=== PATIENT | male | born 1985 | race Caucasian/White ===

== ENCOUNTER 2022-01-26 15:31 | Emergency (ER) | payer SELFPAY ==
[2022-01-26 16:02] VITALS: BP 131/77; PULSE 72; RESP 18; TEMP 37.2; O2SAT 100
--- NOTE | 2022-01-26 18:10 | ED.GENADUL_ITS ---
Discharge Plan Disposition Patient Disposition: HOME Condition: Improving Discharge Details Chief Complaint: GenMedical Clinical Impression: Fatigue Primary Care Provider: None,None ED Provider: Erik Lindsay Discharge Instructions Instructions: Fatigue (ED) Additional Instructions: Please follow-up with primary care physician team. Please return the emergency department if you have any worsening symptoms. Medical Decision Making 36-year-old male presents with resolving fatigue that began at the end of November. Endorses multiple symptoms including warm sensation in his forehead, twitching o f his left, incomplete yawning, has been staying with some friends that he feels nervous about the symptoms, believes he may have had a TIA. Patient is alert and oriented hemodynamically stable afebrile nontoxic, moving all extremities cranial nerves II through XII intact, 5 out of 5 strength upper and lower extremities, ambulatory without ataxia, TMs clear, nonmeningeal. Counseled patient at length regarding the unlikelihood of actual TIA or stroke. I believe he may have been suffering from exhaustion and/or heat exposure during this initial event given multiple physical jobs during the summertime as well as improvement now that he has been off of work. Offered patient labs and imaging if he felt strongly about it however recommended that we get him connected with primary care for more longitudinal evaluation. Patient comfortable going home follow-up with primary care returning for any worsening symptoms. HPI General Date/Time Provider Initiated Documentation: 01/26/22 16:07 . 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 Endorses episode at the end of November where he felt really exhausted fell asleep and had a dream that both of his eyes were sewn shut when he woke up he did not feel right he felt dull had a warm sensation in his scalp and very fatigued. Denies chest pain shortness of breath nausea vomiting diarrhea or constipation. No history of cardiac disease or neurologic disease. Was doing a Google search and believes he may have had a TIA. His symptoms lasted for several days to a week he is feeling better now that he is taking time off of work. No speech deficit no facial weakness no arm or leg weakness or sensory deficits. He does feel that intermittently his left eye will twitch and that he cannot get out a full yawn Related Data Allergies Allergy/AdvReac Type Severity Reaction Status Date / Time No Known Allergies Allergy Unverified 01/26/22 16:06 General Stated Complaint: GenMedical LAUREN: 4 Review of Systems Narrative: Review of Systems Constitutional: Fatigue Eyes: negative ENT: negative Cardiovascular: negative Respiratory: negative Gastrointestinal: negative : negative Musculoskeletal: negative Skin: negative Neurologic: negative Psych: negative PFSH All Active Problems (Updated 01/26/22 @ 18:27 by Erik Lindsay MD) Fatigue (Acute) Social History (System 12/08/21 @ 08:34 by Maggi Rosas) Smoking/Tobacco Use Status: Never Smoking risk assessment performed?: Yes Substance use type: does not use Exam Narrative Exam Narrative: Physical Examination General: alert, awake, cooperative, resting comfortably, no acute distress HEENT: normocephalic, atraumatic; PERRL, EOM intact, conjunctiva normal; no nasal discharge; moist mucous membranes, oral and pharyngeal mucosa normal, tolerating secretions; TMs clear bilaterally Neck: supple, trachea midline; full ROM Chest: normal to inspection Respiratory: normal respiratory effort, speaking in full sentences, clear to auscultation, no wheezing, rales or rhonchi Cardiac: regular rate, regular rhythm, S1S2 intact, no murmurs rubs or gallops GI: abdomen soft, non-tender, non-distended; no palpable mass or hepatosplenomegaly Skin: no lesions, rashes or trauma appreciated Neuro: AAOx3, normal speech, moving all extremities; cranial nerves II through XII intact, no ataxia Extremities: Warm well perfused moving all extremities Psych: Appropriate mood and affect Course Vital Signs Vital signs: Vital Signs Temperature 37.2 C 01/26/22 16:02 Pulse 72 01/26/22 16:02 Respiratory Rate 18 01/26/22 16:02 Blood Pressure 131/77 01/26/22 16:02 Pulse Oximetry 100 01/26/22 16:02 Temperature 37.2 C 01/26/22 16:02 Temperature Source Temporal Artery Scan 01/26/22 16:02 Pulse 72 01/26/22 16:02 Respiratory Rate 18 01/26/22 16:02 Blood Pressure 131/77 01/26/22 16:02 Blood Pressure Position Sitting 01/26/22 16:02 Pulse Oximetry 100 01/26/22 16:02 Oxygen Delivery Method Room Air 01/26/22 16:02 Oxygen Flow Rate 0 01/26/22 16:02 Pain Level 0 01/26/22 16:02
--- NOTE | 2022-01-26 18:28 | NUR.NOTE ---
Nursing Note: Referral given to Care Management for needs PCP; establish care, fatigue; in 1 -2 weeks.
== END 2022-01-26 18:39 | disposition home or self-care (01) ==
PROVIDERS: Emergency Provider Emergency Medicine
DX: R53.83 Other fatigue (principal)
CPT/HCPCS: 99281

== ENCOUNTER 2022-08-12 19:44 | Outpatient (REF) | payer MEDICAID, SELFPAY ==
[2022-08-12 20:38] LABS: Abs Immature Grans 0.01 10^3/uL (0.0-0.06); Absolute Basophil Count 0.07 10^3/uL (0.0-0.2); Absolute Eosinophil Count 0.28 10^3/uL (0.0-0.7); Absolute Lymphocyte Count 2.04 10^3/uL (1.2-3.4); Absolute Monocyte Count 0.51 10^3/uL (0.1-0.8); Absolute Neutrophil Count 2.89 10^3/uL (1.2-6.7); Basophils % 1.2; Eosinophils % 4.8; HCT 45.8 % (40.0-50.0); HGB 15.3 g/dL (13.5-17.5); Immature Grans % 0.2; Lymphocytes % 35.2; MCH 29.3 pg (27.0-33.0); MCHC 33.4 % (32.0-36.0); MCV 88 fL (80-95); MPV 9.1 fL (8.0-11.0); Monocytes % 8.8; Neutrophils % 49.8; Platelet Count 359 10^3/uL (130-400); RBC 5.22 10^6/uL (4.36-5.78); RDW 12.3 % (11.8-14.1); RDW-SD 39.9 fL
[2022-08-12 20:59] LABS: ALT 38 U/L (16-63); AST 19 U/L (15-37); Albumin 4.3 g/dL (3.4-5.0); Alkaline Phosphatase 88 U/L (46-116); Anion Gap 5.3 mmol/L (3-11); BUN 16 mg/dL (7-18); Bilirubin, Total 0.6 mg/dL (0.2-1.0); CO2 31.7 mmol/L (21.0-32.0); CREATININE 0.8 mg/dL (0.70-1.30); Calcium 9.4 mg/dL (8.5-10.1); Chloride 104 mmol/L (98-107); Glucose 92 mg/dL (74-106); Potassium 4.6 mmol/L (3.5-5.1); Sodium 141 mmol/L (136-145); Total Protein 7.1 g/dL (6.4-8.2)
[2022-08-12 21:01] LABS: TSH (W/Ref FT4) < 0.01 uIU/mL (0.36-3.74)
[2022-08-12 21:03] LABS: Hemoglobin A1C 5.3 % (<5.7)
[2022-08-12 22:13] LABS: FREE T4 1.04 ng/dL (0.76-1.46)
== END 2022-08-12 19:45 | disposition home or self-care (01) ==
LOC: LBN 19:44
PROVIDERS: PCP Family Medicine; Visit Provider Physician Assistant Medical
DX: R53.83 Other fatigue (principal)
CPT/HCPCS: 80053; 83036; 84439; 84443; 85025

== ENCOUNTER 2022-09-05 08:32 | Emergency (ER) | payer MEDICAID, SELFPAY ==
[2022-09-05 08:37] VITALS: BP 137/62; PULSE 96; RESP 16; TEMP 37; O2SAT 99
[2022-09-05 08:50] VITALS: RESP 16
[2022-09-05 09:05] LABS: Bilirubin Negative (Negative); Blood Negative (Negative); Clarity Clear (Clear); Glucose Negative (Negative); Ketones Negative (Negative); Leukocyte Esterase Negative (Negative); Nitrite Negative (Negative); Specific Gravity <= 1.005 (1.005-1.025); Urobilinogen 0.2 mg/dL (Up to 0.2); pH 6.5 (5-8)
--- NOTE | 2022-09-05 09:15 | RT.EKG_ITS ---
APPROVED REPORT Exam: Resting ECG Reason for Exam: fatigue Patient Location: E HR:66 bpm ECG Measurements Heart Rate 66 AXIS MA 197 P 69 QRSd 81 QRS 51 QT 389 T 58 QTc 409 Conclusion Sinus rhythm...normal P axis, V-rate 60- 99 Consider left ventricular hypertrophy...(S V1+R V5/V6) >3.50mV
[2022-09-05 09:47] LABS: Abs Immature Grans 0.02 10^3/uL (0.0-0.06); Absolute Basophil Count 0.04 10^3/uL (0.0-0.2); Absolute Eosinophil Count 0.17 10^3/uL (0.0-0.7); Absolute Lymphocyte Count 1.37 10^3/uL (1.2-3.4); Absolute Monocyte Count 0.41 10^3/uL (0.1-0.8); Absolute Neutrophil Count 4.67 10^3/uL (1.2-6.7); Basophils % 0.6; Carboxyhemoglobin 1.4 %; Eosinophils % 2.5; HCT 44.1 % (40.0-50.0); HGB 15.1 g/dL (13.5-17.5); Immature Grans % 0.3; Lymphocytes % 20.5; MCHC 34.2 % (32.0-36.0); MCV 85 fL (80-95); MPV 8.7 fL (8.0-11.0); Monocytes % 6.1; Platelet Count 354 10^3/uL (130-400); RDW 12.8 % (11.8-14.1); RDW-SD 39.7 fL; WBC 6.68 10^3/uL (4.4-10.8)
[2022-09-05 10:16] LABS: ALT 74 U/L (16-63); AST 37 U/L (15-37); Albumin 3.9 g/dL (3.4-5.0); Alkaline Phosphatase 94 U/L (46-116); Anion Gap 7.9 mmol/L (3-11); BUN 14 mg/dL (7-18); Bilirubin, Total 0.5 mg/dL (0.2-1.0); CO2 28.1 mmol/L (21.0-32.0); CREATININE 0.7 mg/dL (0.70-1.30); Calcium 8.9 mg/dL (8.5-10.1); Chloride 106 mmol/L (98-107); Estimated GFR 120.95 (mL/min/1.73m2); Glucose 97 mg/dL (74-106); Potassium 4.2 mmol/L (3.5-5.1); Sodium 142 mmol/L (136-145); Total Protein 7.2 g/dL (6.4-8.2); Troponin I < 50 ng/L (<or=60)
[2022-09-05 10:17] LABS: TSH (W/Ref FT4) < 0.01 uIU/mL (0.36-3.74)
--- NOTE | 2022-09-05 10:26 | ED.GENADUL_ITS ---
Discharge Plan Disposition Patient Disposition: Home Discharge Details Clinical Impression: Disturbance of sleep, Fatigue, Generally unwell, EKG abnormality Primary Care Provider: Chad Marley ED Provider: Melecio Dudley Home Meds and New Rx's Prescriptions: No Action No Known Home Meds Discharge Instructions Instructions: Fatigue (ED) Additional Instructions: No emergent condition was identified today. Please follow-up with your primary care physician. Additional outpatient diagnostic testing should be considered including potentially a cardiac echocardiogram and further thyroid testing. Please contact your primary care physician to arrange follow-up. Return to the ER immediately for any worsening or new concerning symptoms. Medical Decision Making 37-year-old male who notes generally not feeling well for the past few months. Patient has had difficulty sleeping with challenging living environment. Patient is afebrile and hemodynamically stable. Considered carbon monoxide poisoning. Carboxyhemoglobin level is normal. Considered electrolyte abnormality. Labs reviewed and no significant electr olyte now present. Considered thyroid dysfunction. TSH is low but free T4 normal. Considered anemia. CBC reviewed and normal hemoglobin. I considered arrhythmia. EKG was reviewed and interpreted by me: Please see report, sinus rhythm 66 bpm, voltage criteria met for LVH. Unclear etiology for symptoms at this time. No emergent condition identified. Suspect sleep deficit contributing. Plan for follow-up with PCP. SBIRT screener spoke with the patient regarding nicotine use and patient does seem motivated to quit. Brief intervention was performed by screener. Disposition decision was made weighing the risks and benefits of hospitalization versus outpatient treatment, the risk for further decompensation, and the patient's wishes. The patient was stable and requested discharge. Prior to discharge, my usual and customary return precautions were reviewed with the patient - this included follow-up instructions and reason to return to the emergency department if condition worsens, does not improve as expected, or other new concerns arise. All results reviewed with the patient. I did suggest the patient that he changed living environment to hopefully improve sleep. Lab Data Lab results reviewed: Yes I reviewed the patient's lab results. Labs: Laboratory Tests Range/Units 09/05/22 09/05/22 09/05/22 08:55 09:42 09:42 WBC (4.4-10.8) 10^3/uL RBC (4.36-5.78) 10^6/uL Hgb (13.5-17.5) g/dL Hct (40.0-50.0) % MCV (80-95) fL MCH (27.0-33.0) pg MCHC (32.0-36.0) % RDW (11.8-14.1) % Plt Count (130-400) 10^3/uL MPV (8.0-11.0) fL Immature Gran % Neutrophils % Lymphocytes % Monocytes % Eosinophils % Basophils % Nucleated RBC % (0.0-0.3) % Absolute Neutrophils (1.2-6.7) 10^3/uL Absolute Lymphocytes (1.2-3.4) 10^3/uL Absolute Monocytes (0.1-0.8) 10^3/uL Absolute Eosinophils (0.0-0.7) 10^3/uL Absolute Basophils (0.0-0.2) 10^3/uL Carboxyhemoglobin % % 1.4 Sodium (136-145) mmol/L 142 Potassium (3.5-5.1) mmol/L 4.2 Chloride (98-107) mmol/L 106 Carbon Dioxide (21.0-32.0) mmol/L 28.1 Anion Gap (3-11) mmol/L 7.9 BUN (7-18) mg/dL 14 Creatinine (0.70-1.30) mg/dL 0.7 Est GFR (CKD-EPI 2020) (mL/min/1.73m2) 120.95 Glucose (74-106) mg/dL 97 Calcium (8.5-10.1) mg/dL 8.9 Magnesium (1.8-2.4) mg/dL 2.0 Total Bilirubin (0.2-1.0) mg/dL 0.5 AST (15-37) U/L 37 ALT (16-63) U/L 74 H Alkaline Phosphatase (46-116) U/L 94 Troponin I (<or=60) ng/L < 50 Total Protein (6.4-8.2) g/dL 7.2 Albumin (3.4-5.0) g/dL 3.9 TSH (0.36-3.74) uIU/mL < 0.01 L Urine Color (Yellow) Yellow Urine Clarity (Clear) Clear Urine pH (5-8) 6.5 Ur Specific [place] (1.005-1.025) <= 1.005 Urine Protein (Negative) mg/dL Negative Urine Ketones (Negative) mg/dL Negative Urine Blood (Negative) Negative Urine Nitrite (Negative) Negative Urine Bilirubin (Negative) Negative Urine Urobilinogen (Up to 0.2) mg/dL 0.2 Ur Leukocyte Esterase (Negative) Negative Urine Glucose (Negative) mg/dL Negative Range/Units 09/05/22 09:42 WBC (4.4-10.8) 10^3/uL 6.68 RBC (4.36-5.78) 10^6/uL 5.20 Hgb (13.5-17.5) g/dL 15.1 Hct (40.0-50.0) % 44.1 MCV (80-95) fL 85 MCH (27.0-33.0) pg 29.0 MCHC (32.0-36.0) % 34.2 RDW (11.8-14.1) % 12.8 Plt Count (130-400) 10^3/uL 354 MPV (8.0-11.0) fL 8.7 Immature Gran % 0.3 Neutrophils % 70.0 Lymphocytes % 20.5 Monocytes % 6.1 Eosinophils % 2.5 Basophils % 0.6 Nucleated RBC % (0.0-0.3) % 0.0 Absolute Neutrophils (1.2-6.7) 10^3/uL 4.67 Absolute Lymphocytes (1.2-3.4) 10^3/uL 1.37 Absolute Monocytes (0.1-0.8) 10^3/uL 0.41 Absolute Eosinophils (0.0-0.7) 10^3/uL 0.17 Absolute Basophils (0.0-0.2) 10^3/uL 0.04 Carboxyhemoglobin % % Sodium (136-145) mmol/L Potassium (3.5-5.1) mmol/L Chloride (98-107) mmol/L Carbon Dioxide (21.0-32.0) mmol/L Anion Gap (3-11) mmol/L BUN (7-18) mg/dL Creatinine (0.70-1.30) mg/dL Est GFR (CKD-EPI 2020) (mL/min/1.73m2) Glucose (74-106) mg/dL Calcium (8.5-10.1) mg/dL Magnesium (1.8-2.4) mg/dL Total Bilirubin (0.2-1.0) mg/dL AST (15-37) U/L ALT (16-63) U/L Alkaline Phosphatase (46-116) U/L Troponin I (<or=60) ng/L Total Protein (6.4-8.2) g/dL Albumin (3.4-5.0) g/dL TSH (0.36-3.74) uIU/mL Urine Color (Yellow) Urine Clarity (Clear) Urine pH (5-8) Ur Specific [place] (1.005-1.025) Urine Protein (Negative) mg/dL Urine Ketones (Negative) mg/dL Urine Blood (Negative) Urine Nitrite (Negative) Urine Bilirubin (Negative) Urine Urobilinogen (Up to 0.2) mg/dL Ur Leukocyte Esterase (Negative) Urine Glucose (Negative) mg/dL HPI General Mode of arrival: ambulatory . Date/Time Provider Initiated Documentation: 09/05/22 08:51 . Limitations to Documentation: no limitations . Information obtained by: patient . HPI Narrative: 37-year-old male here with chief complaint of generally not feeling well. Patient notes he has not been feeling well for months. He notes that he is in a difficult living situation currently staying with a friend. He notes he is having trouble sleeping at night. He is concerned that the multiple animals may contributing to the strange odor in the trailer where he is staying and that this may be contributing to his symptoms. He notes he has nausea at times, fatigue, intermittent headaches. Patient has no pain at this time. He does feel fatigued. Patient was seen at [facility] a few weeks ago and had blood work that was nondiagnostic and it was recommended that he come to the hospital for further assessment and he declined at that time. Patient denies tick bite. No fevers or cough. No chest pain or shortness of breath. Related Data Home Medications Medication Instructions Recorded Confirmed Unknown [No Known Home Meds] 06/03/22 09/05/22 Allergies Allergy/AdvReac Type Severity Reaction Status Date / Time No Known Allergies Allergy Unverified 09/05/22 08:48 General Stated Complaint: GenMedical LAUREN: 3 Review of Systems All systems reviewed & are unremarkable except as noted in HPI and below Constitutional Constitutional: Denies fever(s) Cardiovascular Cardiovascular: Denies chest pain and Denies dyspnea Respiratory Respiratory: Denies dyspnea PFSH All Active Problems (Updated 09/05/22 @ 10:38 by Melecio Dudley MD) Disturbance of sleep (Acute) Fatigue (Acute) Generally unwell (Acute) EKG abnormality (Acute) Changes in vision (Acute 05/23/22) Insomnia (Acute) Smokeless tobacco use (Acute) Migraine aura, persistent (Acute) Social History Smoking/Tobacco Use Status: Current every day Tobacco Type: smokeless tobacco Tobacco: How many years used: 10 Smoking risk assessment performed?: Yes Alcohol Intake: never Drug use: Current Sobriety Substance use type: marijuana Adopted: No Caregiver/Support person: No Foster care: No Household members: family Housing: house Number of Children: 0 number of grandchildren: 0 Communication Needs: None Education Level: high school Do you need help understanding health information?: Rarely Pets and animals: No Sexually active: Yes Do you think of yourself as: straight/heterosexual Current gender identity: male What is your relationship status?: refused to answer How often do you talk on the phone with friends or family?: twice per week How often do you get together with friends or relatives?: three or more times per week Do you belong to any clubs or organized social groups?: no Panel score (0-1 are the most socially isolated patients): 1 What type of physical activity do you participate in: regular exercise Duration: 60-90 minutes/day Frequency: 3-4 times per week Danya/Jain: Tenriism Special dayna needs: No Seatbelt use: sometimes Helmet use: Yes Helmet use: always Drive intox or ride w/intox route driver salesperson: No Exam Const General: cooperative and no acute distress HENMT Mouth: moist mucous membranes Eyes Sclera: normal sclerae Neck Neck: trachea midline and supple Resp Auscultation: clear to auscultation bilaterally, no rales, no rhonchi and no wheezes Cardio Rate: regular rate and not tachycardic Rhythm: regular rhythm Heart Sounds: no gallops, no murmurs and no rubs GI Palpation: soft, not firm, no guarding, no masses, not rigid and nontender Skin General skin exam: no rashes or lesions noted Neuro General: patient alert, patient awake, patient oriented x3 and tone normal Cognition: normal cognition Speech: speech normal Gait: normal gait Motor: muscle tone normal throughout Extrem General: no edema Psych Appearance: grossly normal Mental Status: mental status grossly normal Speech and Movement: speech and movement normal Course Vital Signs Vital signs: Vital Signs Temperature 37 C 09/05/22 08:37 Pulse 96 H 09/05/22 08:37 Respiratory Rate 16 09/05/22 08:37 Blood Pressure 137/62 09/05/22 08:37 Pulse Oximetry 99 09/05/22 08:37 Temperature 37 C 09/05/22 08:37 Temperature Source Oral 09/05/22 08:37 Pulse 96 H 09/05/22 08:37 Respiratory Rate 16 09/05/22 08:50 Respiratory Effort Normal 09/05/22 08:50 Respiratory Depth Normal 09/05/22 08:50 Respiratory Pattern Normal 09/05/22 08:50 Blood Pressure 137/62 09/05/22 08:37 Blood Pressure Position Sitting 09/05/22 08:37 Pulse Oximetry 99 09/05/22 08:37 Oxygen Delivery Method Room Air 09/05/22 08:37 Oxygen Flow Rate 0 09/05/22 08:37 Pain Level 6 09/05/22 08:37 Comment denies otc relief captain/check airman 09/05/22 08:37 Lab/Test Results Lab/Test Results: Laboratory Tests Range/Units 09/05/22 09/05/22 09/05/22 08:55 09:42 09:42 WBC (4.4-10.8) 10^3/uL RBC (4.36-5.78) 10^6/uL Hgb (13.5-17.5) g/dL Hct (40.0-50.0) % MCV (80-95) fL MCH (27.0-33.0) pg MCHC (32.0-36.0) % RDW (11.8-14.1) % Plt Count (130-400) 10^3/uL MPV (8.0-11.0) fL Immature Gran % Neutrophils % Lymphocytes % Monocytes % Eosinophils % Basophils % Nucleated RBC % (0.0-0.3) % Absolute Neutrophils (1.2-6.7) 10^3/uL Absolute Lymphocytes (1.2-3.4) 10^3/uL Absolute Monocytes (0.1-0.8) 10^3/uL Absolute Eosinophils (0.0-0.7) 10^3/uL Absolute Basophils (0.0-0.2) 10^3/uL Carboxyhemoglobin % % 1.4 Sodium (136-145) mmol/L 142 Potassium (3.5-5.1) mmol/L 4.2 Chloride (98-107) mmol/L 106 Carbon Dioxide (21.0-32.0) mmol/L 28.1 Anion Gap (3-11) mmol/L 7.9 BUN (7-18) mg/dL 14 Creatinine (0.70-1.30) mg/dL 0.7 Est GFR (CKD-EPI 2020) (mL/min/1.73m2) 120.95 Glucose (74-106) mg/dL 97 Calcium (8.5-10.1) mg/dL 8.9 Magnesium (1.8-2.4) mg/dL 2.0 Total Bilirubin (0.2-1.0) mg/dL 0.5 AST (15-37) U/L 37 ALT (16-63) U/L 74 H Alkaline Phosphatase (46-116) U/L 94 Troponin I (<or=60) ng/L < 50 Total Protein (6.4-8.2) g/dL 7.2 Albumin (3.4-5.0) g/dL 3.9 TSH (0.36-3.74) uIU/mL < 0.01 L Urine Color (Yellow) Yellow Urine Clarity (Clear) Clear Urine pH (5-8) 6.5 Ur Specific [place] (1.005-1.025) <= 1.005 Urine Protein (Negative) mg/dL Negative Urine Ketones (Negative) mg/dL Negative Urine Blood (Negative) Negative Urine Nitrite (Negative) Negative Urine Bilirubin (Negative) Negative Urine Urobilinogen (Up to 0.2) mg/dL 0.2 Ur Leukocyte Esterase (Negative) Negative Urine Glucose (Negative) mg/dL Negative Range/Units 09/05/22 09:42 WBC (4.4-10.8) 10^3/uL 6.68 RBC (4.36-5.78) 10^6/uL 5.20 Hgb (13.5-17.5) g/dL 15.1 Hct (40.0-50.0) % 44.1 MCV (80-95) fL 85 MCH (27.0-33.0) pg 29.0 MCHC (32.0-36.0) % 34.2 RDW (11.8-14.1) % 12.8 Plt Count (130-400) 10^3/uL 354 MPV (8.0-11.0) fL 8.7 Immature Gran % 0.3 Neutrophils % 70.0 Lymphocytes % 20.5 Monocytes % 6.1 Eosinophils % 2.5 Basophils % 0.6 Nucleated RBC % (0.0-0.3) % 0.0 Absolute Neutrophils (1.2-6.7) 10^3/uL 4.67 Absolute Lymphocytes (1.2-3.4) 10^3/uL 1.37 Absolute Monocytes (0.1-0.8) 10^3/uL 0.41 Absolute Eosinophils (0.0-0.7) 10^3/uL 0.17 Absolute Basophils (0.0-0.2) 10^3/uL 0.04 Carboxyhemoglobin % % Sodium (136-145) mmol/L Potassium (3.5-5.1) mmol/L Chloride (98-107) mmol/L Carbon Dioxide (21.0-32.0) mmol/L Anion Gap (3-11) mmol/L BUN (7-18) mg/dL Creatinine (0.70-1.30) mg/dL Est GFR (CKD-EPI 2020) (mL/min/1.73m2) Glucose (74-106) mg/dL Calcium (8.5-10.1) mg/dL Magnesium (1.8-2.4) mg/dL Total Bilirubin (0.2-1.0) mg/dL AST (15-37) U/L ALT (16-63) U/L Alkaline Phosphatase (46-116) U/L Troponin I (<or=60) ng/L Total Protein (6.4-8.2) g/dL Albumin (3.4-5.0) g/dL TSH (0.36-3.74) uIU/mL Urine Color (Yellow) Urine Clarity (Clear) Urine pH (5-8) Ur Specific [place] (1.005-1.025) Urine Protein (Negative) mg/dL Urine Ketones (Negative) mg/dL Urine Blood (Negative) Urine Nitrite (Negative) Urine Bilirubin (Negative) Urine Urobilinogen (Up to 0.2) mg/dL Ur Leukocyte Esterase (Negative) Urine Glucose (Negative) mg/dL
[2022-09-05 10:38] VITALS: BP 126/77; PULSE 63; RESP 14; O2SAT 97
--- NOTE | 2022-09-05 11:41 | NUR.NOTE ---
patient called the ER to report that when he arrived home he had some optical symptoms of flashing lights, he states he is discouraged with multiple visits and doesn't feel he is getting any answers. I explained that I could not give him advise over the phone and suggested that he contact his PCP or return to the ER if he felt he needed to be reevaluated. CLB
== END 2022-09-05 10:45 | disposition home or self-care (01) ==
PROVIDERS: Emergency Provider Student in an Organized Health Care Education/Training Program; PCP Family Medicine
DX: R94.31 Abnormal electrocardiogram [ECG] [EKG] (principal); R53.83 Other fatigue; G47.9 Sleep disorder, unspecified; R94.6 Abnormal results of thyroid function studies
CPT/HCPCS: 36415; 36416; 80053; 82375; 82962; 93005; 99283; 81003; 83735; 84439; 84443; 84484; 85025; 93010; 99284

== ENCOUNTER 2022-10-05 13:31 | Emergency (ER) | payer MEDICAID, SELFPAY ==
[2022-10-05 13:45] VITALS: BP 117/98; PULSE 89; RESP 16; O2SAT 99
--- NOTE | 2022-10-05 14:30 | DI.CT_ITS ---
Exam(s) CT HEAD WO EXAM: CT HEAD WO CLINICAL HISTORY: left sided headache. TECHNIQUE: Imaging Protocol: Axial computed tomography images with coronal and sagittal reformatted images were created and reviewed COMPARISON: No exams were available for comparison FINDINGS: Ventricles and Extra axial spaces: Normal in size and morphology for the patient's age. Hemorrhage: None. Cerebral parenchyma: Normal. Midline shift: None. Brainstem/Cerebellum: Normal. Calvarium: Normal. Visualized Paranasal sinuses/Mastoids: There is opacification of ethmoid air cells. There is also mu cosal thickening in the sphenoid sinuses. The remaining visualized paranasal sinuses and mastoid air cells are clear. Soft Tissues: Unremarkable. IMPRESSION: 1. No acute intracranial process. 2. Mild sinusitis. 3. Findings were discussed with the emergency department at 4:28 p.m. on 10/05/2022. RADIATION DOSE DELIVERED: 864.13mGy.cm Total DLP DATA REPOSITORY: All CT scans at this facility are submitted to the National Radiology Data Registry (NRDR) Dose Index Registry (DIR) with the [employer] (A[employer]). RADIATION OPTIMIZATION: All CT scans at this facility use at least one of these dose optimization te chniques: automated exposure control; mA and/or kV adjustment per patient size (includes targeted exa ms where dose is matched to clinical indication); or iterative reconstruction.
[2022-10-05 15:08] LABS: Abs Immature Grans 0.02 10^3/uL (0.0-0.06); Absolute Basophil Count 0.05 10^3/uL (0.0-0.2); Absolute Eosinophil Count 0.17 10^3/uL (0.0-0.7); Absolute Lymphocyte Count 1.81 10^3/uL (1.2-3.4); Absolute Monocyte Count 0.51 10^3/uL (0.1-0.8); Absolute Neutrophil Count 4.67 10^3/uL (1.2-6.7); Basophils % 0.7; Eosinophils % 2.4; HCT 48.3 % (40.0-50.0); HGB 16.3 g/dL (13.5-17.5); Immature Grans % 0.3; MCH 28.7 pg (27.0-33.0); MCHC 33.7 % (32.0-36.0); MCV 85 fL (80-95); MPV 8.5 fL (8.0-11.0); Monocytes % 7.1; Neutrophils % 64.5; Platelet Count 327 10^3/uL (130-400); RBC 5.67 10^6/uL (4.36-5.78); RDW 12.6 % (11.8-14.1); RDW-SD 39.6 fL; WBC 7.23 10^3/uL (4.4-10.8)
--- NOTE | 2022-10-05 15:27 | ED.GENADUL_ITS ---
Discharge Plan Disposition Patient Disposition: Home Condition: Stable Discharge Details Clinical Impression: Hyperthyroidism Primary Care Provider: Chad Marley ED Provider: Luciano Lizama Home Meds and New Rx's Prescriptions: New atenolol 25 mg tablet 25 mg PO DAILY Qty: 14 0RF Patient Comments: not taking Continued melatonin 5 mg Tablet 5 mg PO HS PRN Discharge Instructions Instructions: Hyperthyroidism (ED) Additional Instructions: If you are able please monitor your blood pressure and heart rate while on the new medication. If your heart rate is lower than 60 or your systolic blood pressure is lower than 100 please hold your medication. Also be mindful if this makes you lightheaded upon standing or increases dizziness please hold medication until you see endocrinology. If you develop any new or significant worsening of symptoms please return to the emergency department for reassessment otherwise follow-up with [facility] endocrinology clinic. If you do not hear from them within the next couple days please call their office for scheduling your appointment. Referrals: [facility] [Outside] (Someone from the endocrinology office will reach out to you to further discuss follow-up scheduling) Discharge Data Discharge Date/Time-TO BE ENTERED AT DEPARTURE: 10/05/22 18:40 Medical Decision Making <JUDY Ibanez - Last Filed: 10/07/22 11:27> 37-year-old male who presents with report of fatigue, intermittent headaches, intermittently blurred vision, increased hunger, anxiety, and insomnia has thyroid of less than 0.01, interestingly his free T40.8, will order free T3, concern for subclinical hyperthyroidism We will order CT head as patient has had persistent left-sided headache for intermittently for the past year. Nonfocal neurological exam, specifically no exophthalmos, goiter palpated on exam <Luciano Lizama NP - Last Filed: 10/05/22 22:46> 37-year-old male who presents with report of fatigue, intermittent headaches, intermittently blurred vision, increased hunger, anxiety, and insomnia has thyroid of less than 0.01, interestingly his free T40.8, will order free T3, concern for subclinical hyperthyroidism We will order CT head as patient has had persistent left-sided headache for intermittently for the past year. Nonfocal neurological exam, specifically no exophthalmos, goiter palpated on exam 1600-received signout from Dalila KIM. Please see initial documentation for physical exam, presenting symptoms, and initial plan of care. Patient signed out to me pending head CT scan and suspected [facility] consult for suspected subclinical hyperthyroidism. 1628- Received results from head CT and radiologist interpretation shows mild sinusitis otherwise negative head CT. Free T3 is a send out labs so will contact [facility] for high suspicion of ongoing hyperthyroidism given multiple visits for symptoms consistent with diagnosis. 1800 spoke with [facility] endocrinology and they recommend follow-up with her specialty clinic for highly suspicious clinical presentation of hyperthyroidism. With the recommendation patient was assessed and I did not feel any obvious t hyroid nodule, no goiter, no bruits. Patient also stated no history of viral illness prior to symptoms beginning. Endocrinology recommended atenolol 25 mg daily to see if this helps with patient's symptoms and otherwise they will perform further labs and ultrasound at follow-up preferably next week. Discussed monitoring of vital signs while on beta-kenzie along with return and follow-up precautions. After discussion of diagnosis and plan of care patient has no further needs, questions, or concerns and states clear understanding to return to the emergency department for any worsening symptoms. This documentation was generated using [employer] dictation system, please disregard any oddities of phrase or misspellings. Medical Records Medical records reviewed: Yes I reviewed the patient's medical records. HPI <JUDY Ibanez - Last Filed: 10/07/22 11:27> General Date/Time Provider Initiated Documentation: 10/05/22 13:45 . HPI Narrative: This 37-year-old male presents with symptoms for the past several months. He states he has had insomnia, tremors, headaches, anxiety, and fatigue. He denies any chest pain or shortness of breath. He denies any palpitations. He denies any illicit drug use. He has reported increased hunger. He denies any exacerbating or alleviating factors. He has been seen several times for these complaints. Related Data Home Medications Medication Instructions Recorded Confirmed atenolol 25 mg tablet 25 mg PO DAILY #14 tabs 10/05/22 melatonin 5 mg tablet 5 mg PO HS PRN 10/05/22 10/06/22 Previous Rx's Medication Instructions Recorded atenolol 25 mg tablet 25 mg PO DAILY #14 tabs 10/05/22 Allergies Allergy/AdvReac Type Severity Reaction Status Date / Time No Known Allergies Allergy Unverified 10/06/22 11:01 General Stated Complaint: GenMedical LAUREN: 3 PFSH <JUDY Ibanez - Last Filed: 10/07/22 11:27> All Active Problems (Updated 10/06/22 @ 13:08 by Melecio Dudley MD) Hyperthyroidism (Chronic) Dizziness (Acute) Concern about drug reaction without diagnosis (Acute) Changes in vision (Acute 05/23/22) Insomnia (Acute) Smokeless tobacco use (Acute) Migraine aura, persistent (Acute) Social History Smoking/Tobacco Use Status: Current every day Tobacco Type: smokeless tobacco Tobacco: How many years used: 10 Smoking risk assessment performed?: Yes Alcohol Intake: never Drug use: Current Sobriety Substance use type: does not use Adopted: No Caregiver/Support person: No Foster care: No Household members: family Housing: house Number of Children: 0 number of grandchildren: 0 Communication Needs: None Education Level: high school Do you need help understanding health information?: Rarely Pets and animals: No Sexually active: Yes Do you think of yourself as: straight/heterosexual Current gender identity: male What is your relationship status?: refused to answer How often do you talk on the phone with friends or family?: twice per week How often do you get together with friends or relatives?: three or more times per week Do you belong to any clubs or organized social groups?: no Panel score (0-1 are the most socially isolated patients): 1 What type of physical activity do you participate in: regular exercise Duration: 60-90 minutes/day Frequency: 3-4 times per week Dayna/Confucianism: Confucianist Special dayna needs: No Seatbelt use: sometimes Helmet use: Yes Helmet use: always Drive intox or ride w/intox residential driver: No Exam <JUDY Ibanez - Last Filed: 10/07/22 11:27> Narrative Exam Narrative: Patient appears anxious, alert, oriented, pupils equal round reactive to light and accommodation, proptosis Lungs clear to auscultation, cardiac rate rhythm regular, no abdominal tenderness, no pallor, fully alert and oriented x4, cranial nerves II through XII intact, negative [id number], negative heel ward, ambulatory with steady gait Neck Other: No goiter, mass, thyromegaly Course <JUDY Ibanez - Last Filed: 10/07/22 11:27> Vital Signs Vital signs: Vital Signs Pulse 89 10/05/22 13:45 Respiratory Rate 16 10/05/22 13:45 Blood Pressure 117/98 H 10/05/22 13:45 Pulse Oximetry 99 10/05/22 13:45 Temperature Source Oral 10/05/22 13:45 Pulse 89 10/05/22 13:45 Respiratory Rate 16 10/05/22 13:45 Respiratory Effort Normal 10/05/22 13:48 Blood Pressure 117/98 H 10/05/22 13:45 Blood Pressure Position Sitting 10/05/22 13:45 Pulse Oximetry 99 10/05/22 13:45 Oxygen Delivery Method Room Air 10/05/22 13:45 Oxygen Flow Rate 0 10/05/22 13:45 Pain Level 1 10/05/22 13:45 Lab/Test Results Lab/Test Results: Laboratory Tests Range/Units 10/05/22 14:52 WBC (4.4-10.8) 10^3/uL 7.23 RBC (4.36-5.78) 10^6/uL 5.67 Hgb (13.5-17.5) g/dL 16.3 Hct (40.0-50.0) % 48.3 MCV (80-95) fL 85 MCH (27.0-33.0) pg 28.7 MCHC (32.0-36.0) % 33.7 RDW (11.8-14.1) % 12.6 Plt Count (130-400) 10^3/uL 327 MPV (8.0-11.0) fL 8.5 Immature Gran % 0.3 Neutrophils % 64.5 Lymphocytes % 25.0 Monocytes % 7.1 Eosinophils % 2.4 Basophils % 0.7 Nucleated RBC % (0.0-0.3) % 0.0 Absolute Neutrophils (1.2-6.7) 10^3/uL 4.67 Absolute Lymphocytes (1.2-3.4) 10^3/uL 1.81 Absolute Monocytes (0.1-0.8) 10^3/uL 0.51 Absolute Eosinophils (0.0-0.7) 10^3/uL 0.17 Absolute Basophils (0.0-0.2) 10^3/uL 0.05 Sign Out <JUDY Ibanez - Last Filed: 10/07/22 11:27> Sign Out Data: Sign Out Comment: pending t3, t4, head ct, +/- endo consultation Last updated by Dalila Gallegos PA at 10/05/22 15:48
[2022-10-05 15:31] LABS: ALT 40 U/L (16-63); AST 19 U/L (15-37); Albumin 4.1 g/dL (3.4-5.0); Alkaline Phosphatase 95 U/L (46-116); Anion Gap 8.6 mmol/L (3-11); BUN 14 mg/dL (7-18); Bilirubin, Total 0.5 mg/dL (0.2-1.0); CO2 27.4 mmol/L (21.0-32.0); CREATININE 0.9 mg/dL (0.70-1.30); Calcium 9.2 mg/dL (8.5-10.1); Chloride 105 mmol/L (98-107); Estimated GFR 112.11 (mL/min/1.73m2); Glucose 98 mg/dL (74-106); Potassium 4.2 mmol/L (3.5-5.1); Sodium 141 mmol/L (136-145); Total Protein 7.7 g/dL (6.4-8.2)
[2022-10-05 15:43] LABS: TSH (W/Ref FT4) < 0.01 uIU/mL (0.36-3.74)
[2022-10-05 15:59] LABS: FREE T4 1.08 ng/dL (0.76-1.46)
[2022-10-05 18:33] VITALS: BP 138/74; PULSE 65; RESP 20; TEMP 37.1; O2SAT 97
[2022-10-06 20:16] LABS: T3,Free 7.1 pg/mL (2.8-5.3)
== END 2022-10-05 18:40 | disposition home or self-care (01) ==
PROVIDERS: Physician Assistant; Emergency Provider Nurse Practitioner Family; PCP Family Medicine
DX: E05.90 Thyrotoxicosis, unspecified without thyrotoxic crisis or storm (principal); R51.9 Headache, unspecified
CPT/HCPCS: 80053; 99284; 70450; 84439; 84443; 84481; 85025

== ENCOUNTER 2022-10-06 10:55 | Emergency (ER) | payer MEDICAID, SELFPAY ==
[2022-10-06 10:58] VITALS: PULSE 79; RESP 18; TEMP 36.8; O2SAT 100
[2022-10-06 11:01] VITALS: BP 150/55
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
--- NOTE | 2022-10-06 11:45 | RT.EKG_ITS ---
APPROVED REPORT Exam: Resting ECG Reason for Exam: ? overdose, not feeling well Patient Location: E HR:72 bpm ECG Measurements Heart Rate 72 AXIS [place] 194 P 70 QRSd 92 QRS 47 QT 389 T 56 QTc 427 Conclusion Sinus rhythm...normal P axis, V-rate 60- 99 Probable left atrial enlargement...P >50mS, <-0.10mV V1 Probable left ventricular hypertrophy...multiple LVH criteria
[2022-10-06 12:15] LABS: Lactate 0.8 mmol/L (0.6-1.4)
[2022-10-06 12:19] LABS: Abs Immature Grans 0.02 10^3/uL (0.0-0.06); Absolute Basophil Count 0.03 10^3/uL (0.0-0.2); Absolute Eosinophil Count 0.18 10^3/uL (0.0-0.7); Absolute Lymphocyte Count 1.62 10^3/uL (1.2-3.4); Absolute Monocyte Count 0.47 10^3/uL (0.1-0.8); Absolute Neutrophil Count 3.03 10^3/uL (1.2-6.7); Basophils % 0.6; Eosinophils % 3.4; HCT 47.4 % (40.0-50.0); HGB 16.4 g/dL (13.5-17.5); Immature Grans % 0.4; Lymphocytes % 30.3; MCH 29.3 pg (27.0-33.0); MCHC 34.6 % (32.0-36.0); MCV 85 fL (80-95); MPV 8.8 fL (8.0-11.0); Monocytes % 8.8; Neutrophils % 56.5; Platelet Count 358 10^3/uL (130-400); RBC 5.59 10^6/uL (4.36-5.78); RDW 12.5 % (11.8-14.1); WBC 5.35 10^3/uL (4.4-10.8)
[2022-10-06 12:23] VITALS: RESP 18
[2022-10-06 12:35] LABS: ALT 42 U/L (16-63); AST 20 U/L (15-37); Albumin 4.2 g/dL (3.4-5.0); Alkaline Phosphatase 98 U/L (46-116); BUN 18 mg/dL (7-18); Bilirubin, Total 0.5 mg/dL (0.2-1.0); CREATININE 0.9 mg/dL (0.70-1.30); Calcium 9.5 mg/dL (8.5-10.1); Chloride 102 mmol/L (98-107); Estimated GFR 112.11 (mL/min/1.73m2); Glucose 103 mg/dL (74-106); Magnesium 1.9 mg/dL (1.8-2.4); Potassium 4.1 mmol/L (3.5-5.1); Sodium 139 mmol/L (136-145); Total Protein 7.8 g/dL (6.4-8.2)
[2022-10-06 12:44] LABS: Salicylate < 2.8 mg/dL (<2.8)
[2022-10-06 12:49] LABS: Acetaminophen < 2 ug/mL (10-30)
[2022-10-06 13:01] VITALS: BP 131/87; PULSE 76; RESP 18; TEMP 36.7; O2SAT 99
[2022-10-06 13:14] LABS: Vitamin B12 603 pg/mL (193-986)
== END 2022-10-06 13:24 | disposition home or self-care (01) ==
PROVIDERS: Emergency Provider Student in an Organized Health Care Education/Training Program; PCP Family Medicine
DX: R42 Dizziness and giddiness (principal); G47.00 Insomnia, unspecified
CPT/HCPCS: 36415; 80053; 93005; 99283; 80329; 82607; 83605; 83735; 85025; 93010; 99282